=== PATIENT | male | born 1960 | race Caucasian/White ===

== ENCOUNTER 2017-10-26 20:56 | Emergency (ER) | payer MEDICARE ==
[~2017-10-26] VITALS: Ht 175.3 cm; Wt 86.2 kg
--- NOTE | 2017-10-26 21:04 | ER Report ---
History and Physical Time Seen By MD: 21:04 HPI/ROS CHIEF COMPLAINT: Right groin pain HISTORY OF PRESENT ILLNESS: 57-year-old male presents ambulatory to the ER complaining of right groin pain. He notes a mass there. His scrotum. He notes its approximate size of a golf ball. It occasionally hurts. He wrote here on his bicycle. Patient states that he was told approximately 15 years ago that he needed to have heart bony for treatment of his hepatitis C. He is requesting a prescription for heart bony. Patient notes no nausea no vomiting no diarrhea no constipation. Patient denies dysuria, frequency or hematuria. REVIEW OF SYSTEMS: Respiratory: No cough, no dyspnea. Cardiovascular: No chest pain, no palpitations. Gastrointestinal: No vomiting, no abdominal pain. Musculoskeletal: No back pain. Allergies: Coded Allergies: phenytoin (Verified Allergy, Intermediate, RASH, 10/26/17) Home Meds No Active Prescriptions or Reported Meds Reviewed Nurses Notes: Yes Old Medical Records Reviewed: Yes Constitutional Vital Sign - Last 24 Hours 10/26/17 10/26/17 10/26/17 10/26/17 21:04 21:06 21:11 21:26 Temp 98.2 Pulse 108 110 98 Resp 24 B/P (MAP) 132/77 (95) Pulse Ox 90 90 91 10/26/17 21:30 B/P (MAP) 124/78 (93) Physical Exam Vital signs stable, afebrile, pulse ox normal General Appearance: The patient is alert, has no immediate need for airway protection and no current signs of toxicity. No acute distress Eyes: Pupils equal and round no injection. Respiratory: Chest is non tender, lungs are clear to auscultation. Cardiac: regular rate and rhythm Gastrointestinal: Abdomen is soft and non tender, no masses, bowel sounds normal. , No organomegaly appreciated Examination of the right inguinal canal reveals a small hernia that is easily reducible. There is no signs of incarceration. Musculoskeletal: Neck: Neck is supple and non tender. Extremities have full range of motion and are non tender. Skin: No rashes or lesions. DIFFERENTIAL DIAGNOSIS: After history and physical exam differential diagnosis was considered for right inguinal hernia, inguinal lymphadenopathy, cystocele, varicocele Medical Decision Making ED Course/Re-evaluation ED Course Patient was admitted to an examination room. H&P was done. The differential diagnoses was considered. On conical examination. Patient has a benign inguinal hernia. Is easily reducible. He's advised to follow-up with general surgery for consideration of repair. He is provided with information for general surgeons. Patient's also given information to follow up with Dr. Elida MCGRATH for consideration of treatment of his hepatitis C with her bony. Decision to Disposition Date: Oct 26, 2017 Decision to Disposition Time: 21:37 Depart Departure Latest Vital Signs Vital Signs Date Time Temp Pulse Resp B/P (MAP) Pulse Ox O2 Delivery O2 Flow Rate FiO2 10/26/17 21:30 124/78 (93) 10/26/17 21:26 98 91 10/26/17 21:04 98.2 24 Impression: Primary Impression: Right inguinal hernia Additional Impression: History of hepatitis C Condition: Improved Disposition: HOME OR SELF-CARE Referrals: ROMY NORRIS MD,BRIANNA LAMBERT,JESS Hoffman MD New Scripts No Active Prescriptions or Reported Meds Patient Instructions: Inguinal Hernia (ED) Additional Instructions: Call one of the general surgeons to evaluate your hernia for surgery, Dr. Guerrier or Dr. Lambert Call Dr. Elida MCGRATH specialists to be evaluated for hepatitis C and consideration Harvoni treatment Problem Qualifiers WILY HARRISON DO Oct 26, 2017 21:04
[2017-10-26 21:30] VITALS: BP 124/78
== END 2017-10-26 21:47 | disposition home or self-care (01) ==
LOC: ER 21:17
DX: K40.90 Unilateral inguinal hernia, without obstruction or gangrene, not specified as recurrent (principal)
CPT/HCPCS: 99282

== ENCOUNTER 2017-11-14 01:15 | Day surgery (SDC) | payer MEDICARE ==
--- NOTE | 2017-11-02 20:33 | HISTORY AND PHYSICAL ---
DATE OF ADMISSION: November 14, 2017 CHIEF COMPLAINT Bulge in the right groin. HISTORY OF PRESENT ILLNESS This is a 57-year-old male with a history of a head injury 30 years ago, who has complained of a bulge in his right groin for the last year. It is now causing him some discomfort. ALLERGIES He has an allergy to DILANTIN. MEDICATIONS He is currently on vitamin C. PAST MEDICAL HISTORY AND OPERATIONS He had a left inguinal hernia repair and a tonsillectomy. REVIEW OF SYSTEMS No cardiac, pulmonary, liver, or kidney disease. No diabetes or hypertension. No history of deep vein thrombosis. PHYSICAL EXAMINATION GENERAL: A 57-year-old male in no acute distress. LUNGS: Clear. HEART: Regular rhythm. ABDOMEN: He has a visible and reducible right inguinal hernia. IMPRESSION Right inguinal hernia. PLAN We will repair. We discussed the procedure, complications, and recovery time. He seems to understand and wishes to proceed. We discussed the robotic approach , risks, and benefits. He seems to understand and wishes to proceed. FRANCHESCA
[2017-11-07 12:24] LABS: INR 0.98
--- NOTE | 2017-11-07 12:35 | EKG ---
FACILITY: [facility] PATIENT NAME: MAYRA HARDEN : [id number] MR: [id number] V: [id number] EXAM DATE: ORDERING PHYSICIAN: BRIANNA MAHMOOD TECHNOLOGIST: SALVATORE Test Reason : PREOP-HERNIA Blood Pressure : / mmHG Vent. Rate : 068 BPM Atrial Rate : 068 BPM P-R Int : 140 ms QRS Dur : 088 ms QT Int : 378 ms P-R-T Axes : 033 071 021 degrees QTc Int : 401 ms Sinus rhythm with marked sinus arrhythmia Nonspecific T wave abnormality Abnormal ECG No previous ECGs available Confirmed by SHANNAN MORENO ([id number]) on 11/07/2017 11:47:45 PM Referred By: MARIA A Confirmed By:SHANNAN MORENO
[2017-11-07 12:50] LABS: PLATELET COUNT, AUTOMATED 203 K/uL (150-450)
[~2017-11-14] VITALS: Ht 177.8 cm; Wt 85.7 kg
[2017-11-14] MEDS ORDERED: SUGAMMADEX SOD 200 MG/2 ML SDV ONE (06:55)
[2017-11-14] MEDS ORDERED: DEXAMETHASONE SOD 4 MG/ML VIAL ONE (06:55)
[2017-11-14] MEDS ORDERED: PROPOFOL EMUL(*) 10MG/ML 20 ML 20 ML ONE (06:55)
[2017-11-14] MEDS ORDERED: fentaNYL CITR 250 MCG/5 ML AMP ONE (06:55)
[2017-11-14] MEDS ORDERED: LIDOCAINE MPF 1% 5 ML VIAL ONE (06:55)
[2017-11-14] MEDS ORDERED: ROCURONIUM BROM 10 MG/ML 10 ML ONE (06:55)
[2017-11-14] MEDS ORDERED: ONDANSETRON 4 MG/2 ML VIAL ONE (06:55)
[2017-11-14 06:56] VITALS: BP 124/84
[2017-11-14] MEDS ORDERED: KETAMINE HCL 200 MG/20 ML MDV ONE (06:58)
[2017-11-14] MEDS ORDERED: ROPIVACAINE 0.2% 20 ML VIAL ONE (06:59)
[2017-11-14] MEDS ORDERED: FAMOTIDINE 20 MG TAB PO ONE (09:55)
[2017-11-14] MEDS ORDERED: MIDAZOLAM 2 MG/2 ML VIAL IVP PRN (09:55)
[2017-11-14] MEDS ORDERED: ceFAZolin(*) 2GM/D5W 50ML 50 ML IVPB ONE (09:55)
[2017-11-14] MEDS ORDERED: LIDOCAINE/SOD BICARB 8.4% SYR ID ONE (09:55)
[2017-11-14] MEDS ORDERED: NORMOSOL R SOLN(*) 1000 ML BAG 1,000 ML IV PRN (09:55)
--- NOTE | 2017-11-14 10:23 | Post Operative Progress Note ---
Post Operative Progress Note Date: Nov 14, 2017 Time: 10:22 Surgeon: que Anesthesia: dr bliss Pre-Op Diagnosis: right inguinal hernia Post-Op Diagnosis: same indirect Procedure(s): robotic reva repair using 15 cm by 10 cm progrip mesh BRIANNA MAHMOOD MD Nov 14, 2017 10:23
[2017-11-14] MEDS ORDERED: HYDR-4309 PO (10:24)
[2017-11-14] MEDS ORDERED: KET10 PO (10:24)
--- NOTE | 2017-11-14 10:26 | Short(Outpt) Discharge Summary ---
Discharge Summary Reason for Hosp/Final Diag: (1) Right inguinal hernia Status: Acute Hospital Course & Plan: robotic reva right indirect inguinal hernia repair with 15 cm by 10 cm progrip mesh Departure Discharge to: Home Discharge Instructions Home Meds Active Scripts Hydrocodone Bit/Acetaminophen (NORCO 5-325 TABLET) 1 Each Tablet, 1 EACH PO Q4H Y for PAIN, #30 TAB Prov:BRIANNA MAHMOOD MD 11/14/17 Ketorolac Tromethamine (KETOROLAC TROMETHAMINE) 10 Mg Tab, 10 MG PO Q6H, #14 TAB Prov:BRIANNA MAHMOOD MD 11/14/17 Diet: Regular Activity: No Heavy Lifting Special Instructions: ice to incisions for 48 hours remove bandage and shower to see me in one week, call [phone] for apt BRIANNA MAHMOOD MD Nov 14, 2017 10:26
[2017-11-14 11:05] VITALS: BP 127/80
[2017-11-14 11:11] VITALS: BP 123/83
[2017-11-14] MEDS ORDERED: APAP/HYDROCODONE 325/5 TAB ONE (11:25)
[2017-11-14 13:30] VITALS: BP 117/80
[2017-11-14] MEDS ORDERED: KETOROLAC TROM 10MG TAB ONE (13:56)
--- NOTE | 2017-11-14 14:42 | OPERATIVE REPORT 1 ---
EVENT DATE: November 14, 2017 SURGEON: Scott Guerrier MD ANESTHESIOLOGIST: Asim Massey MD ANESTHESIA: General. PREOPERATIVE DIAGNOSIS Right inguinal hernia. POSTOPERATIVE DIAGNOSIS Right indirect inguinal hernia. PROCEDURE PERFORMED Right transperitoneal robotic inguinal hernia repair. DESCRIPTION OF PROCEDURE The patient was placed in the supine position and given general anesthetic. His abdomen was prepped and draped in a sterile fashion. A Bucio catheter was placed. A small incision was made in the midline several centimeters above the umbilicus. A Veress needle was inserted. The abdomen was insufflated with CO2. We then placed three 8 mm ports under direct vision, one with the VisiView and then one 8 cm lateral on each side under direct vision. At this point, we positioned the ports so that they were in the correct depth. We then docked the robot. We targeted and brought the instruments in to view. On the right side, we had a scissors. On the left side was a grasper. At this point, we did a quick exploration. He had a previous mesh placed in the left lower quadrant. This appeared to be in good position with no evidence of a hernia. We identified a right inguinal hernia which was a indirect inguinal hernia. We then proceeded to start with our peritoneal flap. We went several centimeters cephalad and created the flap from laterally across to the median ligament. We then used blunt dissection electrocautery to develop a flap. We were able to dissect out the indirect inguinal hernia sac. He had a cord lipoma. This was dissected free and removed. We continued with our dissection until we exposed the pubic tubercle, [place] ligament, and internal ring. We had the vas deferens and the blood supply to the testicle. They bifurcated, and we dissected back 3 to 4 cm to free that up and create our space for our mesh. At this point, we placed a 15 cm x 10 cm ProGrip mesh and laid it across the dissected space. It covered the pubic tubercle. It extended laterally past the internal ring. It laid down on the cord structures and onto the anterior abdominal wall. It was then pressed into position, and it laid nice and flat. We then closed the peritoneum with a running ProGrip suture. At this point, the procedure was terminated. Ports were removed under direct vision. No bleeding was noted. Skin was closed with interrupted 4-0 Maxon. Steri-Strips and an Airstrip were placed. The patient tolerated the procedure well. No apparent complications. MTDD
== END 2017-11-14 11:05 | disposition home or self-care (01) ==
LOC: OR 01:15
PROVIDERS: ATTEND Surgery
DX: K40.90 Unilateral inguinal hernia, without obstruction or gangrene, not specified as recurrent (principal); R94.31 Abnormal electrocardiogram [ECG] [EKG]; B19.20 Unspecified viral hepatitis C without hepatic coma; Z87.891 Personal history of nicotine dependence
CPT/HCPCS: 36415; 49650; 80305; 85025; 85610; 93005; A9270; C1781; J1100; J2001; J2250; J2405; J2704; J2795; J3010; J3490; S2900; 82040; 82247; 82310; 82374; 82435; 82565; 82947; 84075; 84132; 84155; 84295; 84450; 84460; 84520; J0690

== ENCOUNTER → 2017-12-19 | Outpatient (CLI) | payer MEDICAID, MEDICARE ==
[~2017-12-19] MED LIST: HYDR-4309 PO; KET10 PO
[2017-12-19 12:33] LABS: PLATELET COUNT, AUTOMATED 227 K/uL (150-450)
[2017-12-19 12:51] LABS: LDL CHOLESTEROL 47 mg/dl
== END ==
LOC: LAB 12:07
PROVIDERS: ATTEND Nurse Practitioner Family
DX: Z12.5 Encounter for screening for malignant neoplasm of prostate (principal); R74.8 Abnormal levels of other serum enzymes; Z86.19 Personal history of other infectious and parasitic diseases; F41.9 Anxiety disorder, unspecified; K21.9 Gastro-esophageal reflux disease without esophagitis; Z72.0 Tobacco use; R71.8 Other abnormality of red blood cells
CPT/HCPCS: 36415; 82728; 83540; 83550; 84443; 85025; 86706; 86707; 87340; 87350; 87522; G0103; 82040; 82247; 82310; 82374; 82435; 82465; 82565; 82947; 83718; 84075; 84132; 84153; 84155; 84295; 84450; 84460; 84478; 84520

== ENCOUNTER → 2018-01-16 | Outpatient (CLI) | payer MEDICARE ==
--- NOTE | 2018-01-16 12:15 | RADIOLOGY IMAGING REPORT ---
[place] [facility] [place] NAME: Chuy Randall : 1960 MR: [id number] V: [id number] EXAM DATE: ORDERING PHYSICIAN: LORENZA AVENDANO TECHNOLOGIST: Location: [facility] Patient: Chuy Randall : 1960 Visit/Account:[id number] Date of Sevice: 01/16/2018 EXAMINATION: Limited right upper quadrant ultrasound 01/16/2018 6:27 AM HISTORY: elevated LFTs hx of hep C. COMPARISON STUDIES: none. FINDINGS: Gallbladder: no stones or sludge. Liver: Normal echogenicity. Smooth capsular contours. No focal lesion. Common duct: Less than 4 mm Pancreas: negative Right kidney: negative Upper abdominal aorta and IVC: negative Ascites: none IMPRESSION: Normal study Report Dictated By: Vick Andersen MD at 01/16/2018 11:20 AM Report E-Signed By: Vick Andersen MD at 01/16/2018 12:10 PM WSN:[email or web address]
== END ==
LOC: US 00:55
PROVIDERS: ATTEND Nurse Practitioner Family
DX: R94.5 Abnormal results of liver function studies (principal)
CPT/HCPCS: 76705

== ENCOUNTER → 2018-02-13 | Outpatient (CLI) | payer MEDICARE ==
[~2018-02-13] MED LIST changes: +HEPA50VI4 IM
[2018-02-13 13:30] LABS: INR 1.04
== END ==
LOC: LAB 13:04
PROVIDERS: ATTEND Nurse Practitioner Family
DX: B19.20 Unspecified viral hepatitis C without hepatic coma (principal); R74.8 Abnormal levels of other serum enzymes; Z87.898 Personal history of other specified conditions
CPT/HCPCS: 36415; 85610; 86703; 87522

== ENCOUNTER → 2018-04-20 | Outpatient (CLI) | payer MEDICARE ==
[~2018-04-20] MED LIST changes: +LEDI1TAB PO
[2018-04-20 10:34] LABS: PLATELET COUNT, AUTOMATED 243 K/uL (150-450)
== END ==
LOC: LAB 09:19
PROVIDERS: ATTEND Nurse Practitioner Family
DX: B19.20 Unspecified viral hepatitis C without hepatic coma (principal)
CPT/HCPCS: 36415; 82040; 82247; 82310; 82374; 82435; 82565; 82947; 84075; 84132; 84155; 84295; 84450; 84460; 84520; 85025; 86704; 86706; 87340

== ENCOUNTER → 2018-05-29 | Outpatient (CLI) | payer MEDICARE ==
[2018-05-29 11:34] LABS: PLATELET COUNT, AUTOMATED 249 K/uL (150-450)
== END ==
LOC: LAB 11:17
PROVIDERS: ATTEND Nurse Practitioner Family
DX: B19.20 Unspecified viral hepatitis C without hepatic coma (principal); Z79.899 Other long term (current) drug therapy
CPT/HCPCS: 36415; 82040; 82247; 82310; 82374; 82435; 82565; 82947; 84075; 84132; 84155; 84295; 84450; 84460; 84520; 85025; 86704; 87340

== ENCOUNTER → 2018-09-06 | Outpatient (CLI) | payer MEDICARE, MEDICAID ==
[~2018-09-06] MED LIST changes: -HYDR-4309 PO; +HYDR-653 PO
[2018-09-06 11:54] LABS: PLATELET COUNT, AUTOMATED 256 K/uL (150-450)
== END ==
LOC: LAB 11:22
PROVIDERS: ATTEND Nurse Practitioner Family
DX: B19.20 Unspecified viral hepatitis C without hepatic coma (principal); Z79.899 Other long term (current) drug therapy
CPT/HCPCS: 36415; 82040; 82247; 82310; 82374; 82435; 82565; 82947; 84075; 84132; 84155; 84295; 84450; 84460; 84520; 85025; 86704; 87340; 87522